=== PATIENT | female | born 1985 | race Caucasian/White ===

== ENCOUNTER 2023-03-12 05:48 | Observation (INO) | payer OTHER ==
[2023-03-11 10:03] VITALS: BMI 27.4
[2023-03-12] MEDS ORDERED: CEFAZOLIN 2 GM VIAL ONE ×3 (06:26→06:28)
[2023-03-12] MEDS ORDERED: Lidocaine 1% w/Epinephrine 1:100K 20 ML VIAL ONE (06:28)
[2023-03-12] MEDS ORDERED: Rocuronium Bromide 10 MG/ML (10ML VIAL) ONE (06:36)
[2023-03-12] MEDS ORDERED: Fentanyl 250 MCG/5 ML VIAL ONE (06:36)
[2023-03-12] MEDS ORDERED: Ondansetron PF 4 MG/2 ML Vial ONE (06:36)
[2023-03-12] MEDS ORDERED: Midazolam HCl 2 mg/2 ml Vial ONE (06:36)
[2023-03-12] MEDS ORDERED: PROPOFOL 20 ML ONE (06:36)
[2023-03-12] MEDS ORDERED: Lidocaine 2% PF 5 ML VIAL ONE (06:36)
[2023-03-12] MEDS ORDERED: Dexamethasone 20 MG/5 ML VIAL ONE (06:36)
[2023-03-12] MEDS ORDERED: PHENYLEPHRINE-NS 100 MCG/ML 10 ML SYRINGE ONE (08:26)
[2023-03-12] MEDS ORDERED: Ondansetron PF 4 MG/2 ML Vial IVP PRN ×2 (09:10→15:03)
[2023-03-12] MEDS ORDERED: Acetaminophen 325 MG TAB PO PRN (09:10)
[2023-03-12] MEDS ORDERED: Ondansetron ODT 4 MG TAB PO PRN ×2 (09:10→15:28)
[2023-03-12] MEDS ORDERED: Sodium Chloride 0.9% 1,000 ML IV SCH ×2 (09:15→19:17)
[2023-03-12] MEDS ORDERED: fentaNYL 50 mcg/mL 1 mL Vial ONE ×2 (10:01→10:25)
[2023-03-12] MEDS: traMADol HCl 50 MG TAB PO PRN ×2 (13:08→16:57)
[2023-03-12 13:10] LABS: Calcium 8.3 mg/dL (7.6-10.4)
[2023-03-12] MEDS ORDERED: Calcitriol 0.25 MCG CAP PO SCH (14:13)
[2023-03-12] MEDS: Calcium Carbonate 500 MG ChewTAB PO SCH ×3 (14:52→20:40)
[2023-03-12] MEDS: Calcitriol 0.25 MCG CAP PO SCH ×2 (14:53→20:46)
[2023-03-12] MEDS ORDERED: Promethazine 25 MG TAB PO PRN (15:32)
[2023-03-12] MEDS ORDERED: Ondansetron HCl/PF 8 MG in Sodium Chloride 0.9% 50 ML IVPB PRN (15:34)
[2023-03-12 20:37] LABS: Calcium 7.9 mg/dL (7.8-10.44); Magnesium 1.8 mg/dL (1.6-2.6)
[2023-03-12] MEDS ORDERED: Calcium Carbonate 500 MG ChewTAB PO SCH (22:00)
[2023-03-13 03:11] LABS: Anion Gap 16 mmol/L (10-20); BUN (Urea Nitrogen) 10 mg/dL (7.0-18.7); Calc. Creatinine Clearance 116 mL/min (70-130); Calcium 7.9 mg/dL (7.8-10.44); Carbon Dioxide 22 mmol/L (22-29); Chloride 104 mmol/L (98-107); Estimated GFR 111; Glucose 128 mg/dL (70-105); Sodium 138 mmol/L (136-145)
[2023-03-13] MEDS: traMADol HCl 50 MG TAB PO PRN ×2 (04:13→12:11)
[2023-03-13] MEDS: Calcitriol 0.25 MCG CAP PO SCH (08:02)
[2023-03-13] MEDS ORDERED: Calcium Carbonate 500 MG ChewTAB PO SCH (09:00)
[2023-03-13] MEDS ORDERED: Magnesium Oxide 400 MG TAB PO SCH (09:00)
[2023-03-13] MEDS ORDERED: Amlodipine 10 MG TAB PO SCH (09:00)
[2023-03-13 11:25] LABS: Calcium 8.4 mg/dL (7.8-10.44)
[2023-03-13 12:22] VITALS: BP 110/67; TEMP 97.9
== END 2023-03-13 14:09 | disposition home or self-care (01) ==
LOC: CSHSDC 05:48 → CSHTELE 09:10
PROVIDERS: ADMIT Otolaryngology Otolaryngic Allergy; ATTEND Otolaryngology Otolaryngic Allergy
PROC: 0GTK0ZZ Resection of Thyroid Gland, Open Approach (ICD-10-PCS; principal; 2023-03-12)
PROC: 07T20ZZ Resection of Left Neck Lymphatic, Open Approach (ICD-10-PCS; 2023-03-12)
DX: C73 Malignant neoplasm of thyroid gland (principal); E89.0 Postprocedural hypothyroidism; J45.909 Unspecified asthma, uncomplicated; Z88.5 Allergy status to narcotic agent; Z79.899 Other long term (current) drug therapy
CPT/HCPCS: 80048; 82310; 83735; 83970; 88305; 88307; 94760; J1100; J2001; J2250; J2405; J2704; J3010; J7050; Q0162; Q0169